=== PATIENT | female | born 1960 | race Caucasian/White ===

== ENCOUNTER 2019-03-13 09:53 | Day surgery (SDC) | payer BC ==
[~2019-03-13 09:53] MED LIST: CEFAZOLIN 2 GM/50 ML (PMX) 50 ML IVPB
[2019-03-13] MEDS: SOD CHLORIDE 0.9% 1,000 ML IV (10:42)
[2019-03-13] MEDS ORDERED: SUCCINYLCHOLINE CHLORIDE 100 MG/5 ML SYG IV (15:13)
[2019-03-13] MEDS ORDERED: LIDOCAINE 2% (SDV) 5 ML INJ (15:13)
[2019-03-13] MEDS ORDERED: PROPOFOL 20 ML (15:13)
[2019-03-13] MEDS ORDERED: NEOSTIGMINE 3 MG/3 ML SYRINGE (15:13)
[2019-03-13] MEDS ORDERED: GLYCOPYRROLATE 0.4 MG INJ (15:13)
[2019-03-13] MEDS ORDERED: ROCURONIUM 50 MG INJ (15:13)
[2019-03-13] MEDS ORDERED: MEPERIDINE 100 MG INJ (15:13)
[2019-03-13] MEDS: BUPIVACAINE 0.5%/EPI (SDV) 30 ML INJ (15:51)
[2019-03-13] MEDS ORDERED: OXYCODONE/ACETAMINOPHEN (5/325) TAB PO (16:00)
[2019-03-13] MEDS ORDERED: hydrALAzine 20 MG INJ IV (16:00)
[2019-03-13] MEDS ORDERED: METOCLOPRAMIDE 10 MG INJ IV (16:00)
[2019-03-13] MEDS ORDERED: DIPHENHYDRAMINE 50 MG INJ IV (16:00)
[2019-03-13] MEDS ORDERED: MEPERIDINE 25 MG INJ IV (16:00)
[2019-03-13] MEDS ORDERED: ONDANSETRON 4 MG INJ IV ×2 (16:00→16:30)
[2019-03-13] MEDS ORDERED: EPHEDrine 25 MG/5 ML SYG IV (16:00)
[2019-03-13] MEDS ORDERED: LABETALOL HCL 20MG INJ IV (16:00)
[2019-03-13] MEDS ORDERED: FENTAnyl 50 MCG/ML VIAL IV ×2 (16:00)
[2019-03-13] MEDS ORDERED: MIDAZOLAM 1 MG/ML 2 ML INJ IV (16:00)
[2019-03-13] MEDS ORDERED: HYDROmorphONE 1 MG/5 ML IV SYRINGE IV ×2 (16:00)
[2019-03-13] MEDS ORDERED: ONDANSETRON 4 MG INJ (16:06)
[2019-03-13] MEDS ORDERED: METOCLOPRAMIDE 10 MG INJ (16:06)
[2019-03-13] MEDS ORDERED: CEFAZOLIN 1 GM INJ (16:06)
[2019-03-13] MEDS ORDERED: HYDROCODONE/APAP (5/325) TAB PO ×2 (16:30)
[2019-03-13] MEDS ORDERED: morphine 2 MG INJ IV (16:30)
[2019-03-13] MEDS ORDERED: IBUPROFEN 600 MG TAB PO (16:30)
[2019-03-13] MEDS: KETOROLAC 30 MG INJ IV (17:05)
[2019-03-13] MEDS: HYDROmorphONE 1 MG/5 ML IV SYRINGE IV (17:06)
[2019-03-13] MEDS: FENTAnyl 50 MCG/ML VIAL IV (17:06)
[2019-03-13] MEDS: OXYCODONE/ACETAMINOPHEN (5/325) TAB PO (17:10)
== END 2019-03-13 18:45 | disposition home or self-care (01) ==
LOC: SDS 09:53
DX: K80.10 Calculus of gallbladder with chronic cholecystitis without obstruction (principal); I10 Essential (primary) hypertension; E11.9 Type 2 diabetes mellitus without complications; Z79.82 Long term (current) use of aspirin; Z79.4 Long term (current) use of insulin
CPT/HCPCS: 47562; 71045; 82962; 88304; 93005